=== PATIENT | male | born 1940 | race Caucasian/White ===

== ENCOUNTER → 2019-08-15 | Outpatient (CLI) | payer MEDICARE ==
[~2019-08-15] MED LIST: ACYC400T PO; AMINOPHYLLINE 250MG/10 ML VIAL IV SCH; ASPI-1005 PO; BORT3.5V IJ; CALC600T12 PO; CHOL100040 PO; DEXA4TAB PO; DRON400T2 PO; FISH1CAP50 PO; LUTE6CAP2 PO; METO25 PO; MULT-1192 PO; MULT1TAB82 PO; ONDA8TAB65 PO; REGADENOSON 0.4 MG/5 ML PF SYG IVP SCH; SIMV40TA59 PO; SULF1TAB41 PO; Simvastatin PO
[2019-08-15 10:19] VITALS: BP 149/92
--- NOTE | 2019-08-15 10:19 | NUR ---
AMINOPHYLLINE 50 MG ADMIN SLOW IV PUSH FOR CONSTANT PRESSURE IN CHEST AND HEAD THAT IS NOT SUBSIDING POST LEXISCAN TEST.
[2019-08-15 10:21] VITALS: BP 142/93
[2019-08-15 10:23] VITALS: BP 139/90
[2019-08-15 10:25] VITALS: BP 143/79
[2019-08-15 10:27] VITALS: BP 144/88
--- NOTE | 2019-08-15 10:27 | NUR ---
PT REPORTS PRESSURE IN CHEST AND HEAD HAVE SUBSIDED ALMOST COMPLETELY
== END | disposition home or self-care (01) ==
LOC: SHCH 07:48
PROVIDERS: ATTEND Internal Medicine Cardiovascular Disease
DX: I48.0 Paroxysmal atrial fibrillation (principal)
CPT/HCPCS: 78452; 93017; 96374; A9500 ×2; J2785; J0280

== ENCOUNTER 2023-09-14 06:52 | Day surgery (SDC) | payer MEDICARE ==
[2023-09-12 09:16] LABS: BASOPHILS # (AUTO) 0.02 K/uL (0.00-0.20); BASOPHILS % (AUTO) 0.3 % (0.0-5.0); EOSINOPHILS # (AUTO) 0.12 K/uL (0.00-0.70); EOSINOPHILS % (AUTO) 1.7 % (0.0-8.0); HEMATOCRIT 45.7 % (42-54); IMMATURE GRANULOCYTE ABSOLUTE 0.03 K/uL (0-1); LYMPHOCYTES # (AUTO) 1.3 K/uL (1.0-4.8); MEAN CORPUSCULAR HGB CONC 32.6 g/dL (32.0-36.0); MEAN CORPUSCULAR VOLUME 98.3 fL (79-99); MONOCYTES # (AUTO) 0.5 K/uL (0.1-1.0); MONOCYTES % (AUTO) 6.4 % (3.0-13.0); NEUTROPHILS # (AUTO) 5.2 K/uL (1.8-7.7); NEUTROPHILS % (AUTO) 73.2 % (40.0-77.0); PLATELET COUNT (AUTO) 156 K/uL (130-400); RED BLOOD CELL COUNT(AUTO) 4.65 MIL/uL (4.50-6.20); RED CELL DISTRIBUTION WIDTH 12.1 % (11.0-15.5)
[2023-09-12 09:25] LABS: CREATININE 1.8 mg/dL (0.5-1.3); POTASSIUM 4.2 mmol/L (3.5-5.1)
[2023-09-12 09:28] LABS: INR 1.06 (0.85-1.15); PROTHROMBIN TIME 12.4 SEC (9.6-11.6)
[2023-09-12 09:29] LABS: PARTIAL THROMBOPLASTIN TIME 32.7 SEC (26.3-35.5)
[2023-09-12 09:40] VITALS: BP 140/83; PULSE 72; RESP 15
[~2023-09-14] VITALS: Ht 167.6 cm; Wt 79.1 kg
[~2023-09-14 06:52] MED LIST changes: +ACET-2743 PO; -ACYC400T PO; -AMINOPHYLLINE 250MG/10 ML VIAL IV SCH; +AMLO-258 PO; +APIX2.5T PO; +BETA1TAB20 PO; -BORT3.5V IJ; -CALC600T12 PO; -DEXA4TAB PO; -DRON400T2 PO; -FISH1CAP50 PO; +FOLI0.8C PO; +ICOS1CAP PO; +LISI20TA24 PO; +METO-391 PO; -METO25 PO; -MULT1TAB82 PO; +OMEP20TA2 PO; -ONDA8TAB65 PO; -REGADENOSON 0.4 MG/5 ML PF SYG IVP SCH; +SIMV-343 PO; -SIMV40TA59 PO; -SULF1TAB41 PO; -Simvastatin PO
[2023-09-14 07:25] LABS: CREATININE 1.9 mg/dL (0.5-1.3); POTASSIUM 4.5 mmol/L (3.5-5.1)
[2023-09-14 07:30] VITALS: BP 137/88; PULSE 66; RESP 16
[2023-09-14] MEDS: 0.9%NACL 1000ML 1,000 ML IV ONE (08:13)
[2023-09-14] MEDS ORDERED: LIDOCAINE HCL 1% MDV 50ML VIAL ONE (08:30)
[2023-09-14] MEDS ORDERED: IOHEXOL-350 50ML VIAL IV ONE (08:30)
[2023-09-14] MEDS ORDERED: VANCOMYCIN 1G/250ML KIT 500 ML IV ONE (08:30)
[2023-09-14] MEDS ORDERED: BUPIVACAINE/PF 0.25% 30ML VIAL IJ ONE (08:30)
[2023-09-14] MEDS ORDERED: LIDOCAINE HCL 400MG/20ML VIAL ONE (08:49)
[2023-09-14] MEDS ORDERED: MEPERIDINE-PF 25 MG/ML SYG ONE ×3 (09:23→10:14)
[2023-09-14] MEDS ORDERED: MIDAZOLAM HCL 1 MG/ML 2ML VIAL ONE ×3 (09:24→10:14)
[2023-09-14] MEDS ORDERED: BACITRACIN 1 EACH PACKET TP ONE (10:21)
[2023-09-14] MEDS ORDERED: TRAM50TA4 PO (11:10)
[2023-09-14 11:15] VITALS: BP 134/77; PULSE 70; RESP 16
[2023-09-14 11:30] VITALS: BP 134/77; PULSE 71; RESP 16
[2023-09-14] MEDS ORDERED: ACETAMINOPHEN WITH CODEINE 1 TAB TAB PO PRN (11:30)
[2023-09-14] MEDS ORDERED: ACETAMINOPHEN 500 MG TABLET PO PRN (11:30)
[2023-09-14 11:45] VITALS: BP 133/75; PULSE 74; RESP 16
[2023-09-14 12:00] VITALS: BP 117/48; PULSE 76; RESP 15
[2023-09-14 12:30] VITALS: BP 134/77; PULSE 70; RESP 16
== END 2023-09-14 14:15 | disposition home or self-care (01) ==
LOC: DAH 06:52
PROVIDERS: ATTEND Internal Medicine Cardiovascular Disease
DX: Z45.010 Encounter for checking and testing of cardiac pacemaker pulse generator [battery] (principal); I47.19 Other supraventricular tachycardia; I49.5 Sick sinus syndrome; I25.5 Ischemic cardiomyopathy; E11.22 Type 2 diabetes mellitus with diabetic chronic kidney disease; I13.10 Hypertensive heart and chronic kidney disease without heart failure, with stage 1 through stage 4 chronic kidney disease, or unspecified chronic kidney disease; N18.30 Chronic kidney disease, stage 3 unspecified; G47.33 Obstructive sleep apnea (adult) (pediatric); Z79.01 Long term (current) use of anticoagulants; Z79.899 Other long term (current) drug therapy; Z79.82 Long term (current) use of aspirin; Z86.73 Personal history of transient ischemic attack (TIA), and cerebral infarction without residual deficits; Z95.1 Presence of aortocoronary bypass graft; Z82.49 Family history of ischemic heart disease and other diseases of the circulatory system
CPT/HCPCS: 80048 ×2; 85025; 85610; 85730; 36415 ×2; 93005; 33228; 93620; 82948; C1894; C1785; C1730; J3490 ×2; J7030; J0665; J2250 ×2; J3370; J2175 ×2; J1644; A4215; A6251; A4222; A4221; A4663; A4216; A6258; A4606; A4223 ×3; 99156; 99157; Q9967